=== PATIENT | female | born 2000 | race Caucasian/White ===

== ENCOUNTER 2023-06-11 15:57 | Emergency (ER) | payer BC, SELFPAY ==
[2023-06-11 15:59] VITALS: BP 123/74
[2023-06-11 16:15] LABS: % Basophils 1.1 % (0-2); % Eosinophils 0.7 % (0-6); % Immature Granulocytes 0.2 % (0-0.5); % Lymphocytes 40.8 % (20.5-51.1); % Monocytes 9.1 % (1.7-9.3); % Neutrophils 48.1 % (42.2-75.2); Absolute Basophils 0.1 10^3/uL (0-0.2); Absolute Lymphocytes 2.3 10^3/uL (1.2-3.4); Absolute Monocytes 0.5 10^3/uL (0.1-0.6); Absolute Neutrophils 2.7 10^3/uL (1.4-6.5); Hematocrit 39.6 % (37.0-47.0); Hemoglobin 13.8 g/dL (12.0-16.0); Mean Corp Hgb Conc. 34.8 g/dL (33.0-37.0); Mean Corpuscular Hgb 30.7 pg (27.0-31.0); Mean Platelet Volume 11.8 fL (7.4-10.4); Nucleated Red Blood Cells % 0 %; Platelet Count 202 10^3/uL (130-400); Red Cell Dist. Width 12.3 % (11.5-14.5); White Blood Cell Count 5.6 10^3/uL (4.8-10.8)
[2023-06-11 16:32] LABS: ALT (SGPT) 31 U/L (0-35); AST (SGOT) 29 U/L (14-36); Albumin 4.7 g/dl (3.5-5.0); Alkaline Phosphatase 43 U/L (38-126); Blood Urea Nitrogen 12 mg/dl (7-17); Calcium 10.3 mg/dl (8.4-10.2); Carbon Dioxide 24 mmol/L (22-30); Chloride 102 mmol/L (98-107); Glucose 106 mg/dl (70-99); Potassium 3.4 mmol/L (3.5-5.1); Sodium 136 mmol/L (135-145); Total Protein 7.4 g/dl (6.3-8.2); eGFR > 60.00
[2023-06-11 16:40] LABS: Troponin I < 0.012 ng/ml
[2023-06-11 17:25] LABS: HCG, Serum Qualitative Screen Negative
[2023-06-11 17:35] LABS: Lipase 68 U/L (23-300)
--- NOTE | 2023-06-11 18:32 | ED.GENMED ---
History of Present Illness
General
Chief Complaint: Abdominal Symptoms
Source: patient and family
Time Seen by Provider: 06/11/23 18:14
Travel History
Have you had any contact with someone who has COVID-19?: No
Do you have any symptoms of coronavirus? Fever > 100 degrees, chills, cough, shortness of breath, sore throat, loss of taste or smell, muscle aches, or headache?: No
History of Present Illness
History of Present Illness:
22-year-old female with no significant past medical history presenting to the emergency department with a multitude of symptoms that have been ongoing for the last 2 to 3 weeks including nausea and bilious emesis that she states usually occurs in
the morning or after drinking alcohol (notes that she goes out maybe every 2 weeks but symptoms were worse after drinking), intermittent shortness of breath and right shoulder pain, headaches, intermittent night sweats, decreased p.o. intake,
difficulty bearing down when having a bowel movement. Patient has not attempted anything for her symptoms. She states she has not had a history of this previously. She is otherwise denying any chest pain, cough, pleurisy, hemoptysis, urinary
symptoms, bowel changes, vaginal bleeding or discharge, fevers, chills, rigors. Denies any recent travel, no known sick contacts or recent antibiotics. Social history is only significant for occasional alcohol use. Family history is
noncontributory.
Past History
Past History
ED Past Medical History: None
ED Past Surgical History: Tonsilectomy
Social History
Tobacco: Non-smoker
Alcohol: Occasional
Drug: None
Personal: Single
Living: with family
Employment: Employed
Review of Systems
Review of Systems
All Other Systems: ROS reviewed and negative except as documented in HPI and ROS
Phy Exam
Physical Exam
Physical Exam:
GENERAL: Alert , in no apparent distress
EYE: clear conjunctiva b/l
HEAD: NCAT
ENT: o/p clr, mmm.
CARDIAC: Regular rate and rhythm .
LUNGS: Clear breath sounds bilaterally, no acute respiratory distress, no wheezes/rales/rhonchi
ABDOMEN: Soft, mild epigastric tenderness, no r/g, no cvat
NEUROLOGICAL: Alert and oriented
SKIN: Warm and dry, skin intact.
MUSCULOSKELETAL: No edema, well perfused. Full range of motion bilateral upper extremities
PSYCH: Normal and appropriate interaction.
Scores
Heart Failure Risk
Heart Failure Risk Score: Not Applicable
Heart Score for Chest Pain Patients
STEMI patient?: Not applicable
Withdrawal Assessment of Alcohol
Withdrawal Assessment Completed?: Not applicable
Course
Orders/Labs/Results
Orders:
Orders
06/11/23 16:02
Electrocardiogram (*1) Urgent
Reason for Study: Shortness of Breath
EKG- Treatment ONCE
Test Result ONCE
06/11/23 16:07
Complete Blood Count/With Diff Urgent
Comprehensive Metabolic Panel Urgent
HCG, Serum Qualitative Screen Urgent
Lipase Urgent
Troponin I Urgent
06/11/23 18:41
Urinalysis Reflex To Culture Urgent
Date Specimen was Collected: 06/11/23
Time Specimen was Collected: 18:39
Urine Microscopic Reflex Cult Urgent
Urine Culture Urgent
MAINOR Source: U
Specimen Description:
Date Specimen was Collected: 06/11/23
Time Specimen was Collected: 18:39
Abnormal Lab Results
06/11/23 06/11/23
16:07 18:41
MPV 11.8 H fL
(7.4-10.4)
Potassium 3.4 L mmol/L
(3.5-5.1)
Glucose 106 H mg/dl
(70-99)
Calcium 10.3 H mg/dl
(8.4-10.2)
Urine Ketones Trace A
(Negative)
Leukocyte Esterase Rfl 1+ A
(Negative)
Urine Bacteria (Reflex) Many A
(Negative)
06/11/23 16:07
06/11/23 16:07
Vital Signs
Initial and Last Documented VS:
Initial Vital Signs
Temp Pulse Resp BP Pulse Ox
97.7 F 97 18 123/74 99
06/11/23 15:59 06/11/23 15:59 06/11/23 15:59 06/11/23 15:59 06/11/23 15:59
Last Documented Vital Signs
Temp Pulse Resp BP Pulse Ox
97.7 F 89 16 121/78 98
06/11/23 15:59 06/11/23 18:53 06/11/23 18:53 06/11/23 18:53 06/11/23 18:53
MDM/Problems Addressed
Differential Diagnosis Includes:
GERD, gastritis, peptic ulcer disease, H. pylori, PE considered given the right shoulder pain and shortness of breath however patient states the right shoulder pain seems to be more reproducible with palpation and movement and is only intermittent.
If this were PE and I expect the symptoms to be constant and not fleeting. Unclear etiology for her night sweats as she has no fever, no leukocytosis or any infectious signs/symptoms.
MDM/Problems Addressed:
22-year-old female presenting emergency department for a multitude of symptoms that have been ongoing over the last few weeks. Unclear etiology for patient's multitude of symptoms however I do suspect her GI symptoms may be related to
GERD/gastritis especially in light of symptoms being worse with alcohol intake. I have very low suspicion for PE as patient has no risk factors for this. She is PERC negative. Labs were initiated in triage and are all reassuring. There is no
leukocytosis, hemoglobin is within normal limits and chemistry is unremarkable. test is negative. Overall I do not suspect any emergent pathology. Will check a urinalysis. Offered chest x-ray however patient declines. Anticipate
discharge home with outpatient management. Patient notes that she does not have a primary care physician currently so will notify the [facility] dispatch coordinator talk to patient to help facilitate outpatient management.
*Pulse Oximetry
Patient hypoxic: no
*Critical Care Note
Total Time (30-74mins, 75-104mins- exclusive of procedures): Not Applicable
Comment
Comment:
Urinalysis did show 1+ leukocytes however there were many bacteria, moderate mucus and only 6-10 WBCs. Culture was sent. Patient is not exhibiting any urinary symptoms so will await culture prior to treating. She is otherwise stable for discharge
home
ED Attending Note
-
Portions of this chart may have been created with voice recognition software.� Occasional wrong word or��sound alike� substitutions may have occurred due to the inherent limitations of voice recognition software.
Discharge Plan
Departure
Patient Disposition: Home (Routine Discharge)
Date of Disposition: 06/11/23
Time of Disposition: 18:44
Patient with high blood pressure during this ER visit?: No
Discharge Problem:
Nausea and vomiting, Right shoulder pain, Night sweats
Instructions: Nausea and Vomiting, Adult (DC)
Prescriptions:
New
pantoprazole [Protonix] 40 mg tablet,delayed release (DR/EC)
40 mg PO DAILY Qty: 30 0RF
ondansetron 4 mg tablet,disintegrating
4 mg PO TIDPRN PRN (Reason: nausea/vomiting) Qty: 10 0RF
Referrals:
Serina Winslow MD [Active] - (GI - Call for appointment)
Interventions
Interventions:
*Risk Screen - Suicide Last Done: 06/11/23 15:59
*General Assessment Last Done: 06/11/23 15:59
*Neglect/Abuse Screening Last Done: 06/11/23 15:59
ED- Fall Risk Assessment Last Done: 06/11/23 18:53
*ED COVID-19 Vaccine History Last Done: 06/11/23 15:59
*Nursing Disposition Last Done: 06/11/23 18:53
SG-Xpggca-Rweoyssmlk Assessment Last Done: 06/11/23 18:12
Discharge Date and Time
Discharge Date/Time: 06/11/23 18:54
Print Language: UKRAINIAN
[2023-06-11 18:48] LABS: Urine Albumin Trace (Neg - Trace); Urine Bilirubin Negative (Negative); Urine Character Clear (Clear); Urine Color Yellow; Urine Glucose Negative (Negative); Urine Ketone Trace (Negative); Urine Leukocyte 1+ (Negative); Urine Nitrite Negative (Negative); Urine Occult Blood Negative (Negative); Urine Urobilinogen 1+ (Neg - 1+)
[2023-06-11 18:53] VITALS: BP 121/78
[2023-06-11 18:55] LABS: Urine Mucus Moderate
[2023-06-11 18:56] LABS: Urine Bacteria Many (Negative); Urine Red Blood Cell 0-2 /HPF (0-2)
== END 2023-06-11 18:54 | disposition home or self-care (01) ==
LOC: EMR 15:57
PROVIDERS: Emergency Medicine; Physician Assistant Medical; EMERGENCY PHYSICIAN Emergency Medicine
DX: M25.511 Pain in right shoulder (principal); R11.2 Nausea with vomiting, unspecified; R61 Generalized hyperhidrosis
CPT/HCPCS: 99284; 80053; 81003; 81015; 83690; 84484; 84703; 85025; 87086; 93005

== ENCOUNTER 2023-12-24 18:19 | Emergency (ER) | payer BC, SELFPAY ==
[2023-12-24 18:27] VITALS: BP 102/74
[2023-12-24 19:09] LABS: % Basophils 0.6 % (0-2); % Eosinophils 1.2 % (0-6); % Immature Granulocytes 0.2 % (0-0.5); % Lymphocytes 30.6 % (20.5-51.1); % Neutrophils 60.4 % (42.2-75.2); Absolute Basophils 0.1 10^3/uL (0-0.2); Absolute Eosinophils 0.1 10^3/uL (0-0.7); Absolute Lymphocytes 2.5 10^3/uL (1.2-3.4); Absolute Monocytes 0.6 10^3/uL (0.1-0.6); Absolute Neutrophils 4.9 10^3/uL (1.4-6.5); Hemoglobin 12.7 g/dL (12.0-16.0); Mean Corp Hgb Conc. 35.3 g/dL (33.0-37.0); Mean Corpuscular Hgb 30.9 pg (27.0-31.0); Mean Corpuscular Volume 87.6 fL (81.0-99.0); Mean Platelet Volume 11.5 fL (7.4-10.4); Nucleated Red Blood Cells % 0 %; Platelet Count 186 10^3/uL (130-400); Red Blood Cell Count 4.11 10^6/uL (4.20-5.40); White Blood Cell Count 8.2 10^3/uL (4.8-10.8)
--- NOTE | 2023-12-24 19:27 | ED.GENMED ---
History of Present Illness
General
Chief Complaint: Headache
Source: patient
Exam Limitations: none
Time Seen by Provider: 12/24/23 19:02
History of Present Illness
History of Present Illness:
This is a 23 year old female that comes in with c/o left sided headache. States that this started 3 days ago. States that there is pressure on the left sided of her head and running into her ear. States that she has never had this before. States
that her left neck and shoulders feel stiff and tense. States that if she talks fast she feels that sometimes she is slurring her words. Mom states that she is not slurring at this time. States that occasionally she also has ringing in her ear.
States that her urine does smell. Denies any fever, chills, chest pain, SOB, abd pain, nausea, vomiting, diarrhea, dizziness, urinary burning.
Past History
Past History
ED Past Medical History: None; Negative Asthma, HTN, Hypercholesterolemia or NIDDM
ED Past Surgical History: Tonsilectomy and Other (Myringotomy tubes as child)
Social History
Tobacco: Vaping
Alcohol: Occasional
Drug: None and Marijuana
Personal: Single
Living: with family
Employment: Employed
Review of Systems
Review of Systems
All Other Systems: ROS reviewed and negative except as documented in HPI and ROS
Constitutional: Reports no symptoms; Denies fever or chills
EENT: Reports no symptoms
Respiratory: Reports no symptoms; Denies cough or trouble breathing
Cardiac: Reports no symptoms; Denies chest pain
ABD/GI: Reports no symptoms; Denies abdominal pain, nausea, vomiting or diarrhea
: Reports other (Urine is fowl smelling)
Musculoskeletal: Reports no symptoms
Skin: Reports no symptoms
Neurological: Reports headache (Left sided); Denies dizzy
Psychiatric: Reports no symptoms
Phy Exam
General Physical Exam
General Presentation: well appearing and no apparent distress
General age: appears stated age
General Skin: warm and dry
General Habitus: normal
General Mental: alert
General Hydration: appears well hydrated
ENT Exam
ENT Exam: TM's normal, pharynx normal and neck supple
Eye Exam
Eye Exam: EOMI
Cardiovascular Exam
Cardiovascular Exam: regular rate/rhythm, no edema, no murmur and normal peripheral pulses
Pulmonary Exam
Pulmonary Exam: lungs clear, no respiratory distress, no rales, chest non tender, no crackles, no rhonchi and no cough
Gastrointestinal Exam
Gastrointestinal Exam: normal bowel sounds, non tender, soft, no organomegaly, no pulsatile mass and non distended
Musculoskeletal Exam
Musculoskeletal Exam: full ROM and no edema
Skin Exam
Skin Exam: normal color, warm/dry and no rash
Psychiatric Exam
Psychiatric Exam: normal mood/affect
Course
Orders/Labs/Results
Orders:
Orders
12/24/23 19:03
Comprehensive Metabolic Panel Urgent
HCG, Serum Qualitative Screen Urgent
12/24/23 19:04
Complete Blood Count/With Diff Urgent
12/24/23 19:08
CT Head W/o Iv Contrast Urgent
Comment:
Reason For Exam: headache
12/24/23 19:26
0.9% Sodium Chloride 500 ml [Nss] 500 ml IV BOLUS
Dexamethasone Sod Phosphate [Decadron] 10 mg IV NOW STA
Ketorolac [Toradol] 15 mg IV NOW STA
12/24/23 19:29
Add On- LAB Urgent
Tests Added?: HCG
12/24/23 19:31
Acetaminophen [Tylenol] 650 mg PO NOW STA
12/24/23 19:35
Urinalysis Reflex To Culture Urgent
Date Specimen was Collected: 12/24/23
Time Specimen was Collected: 19:29
Urine Microscopic Reflex Cult Urgent
Urine Culture Urgent
MAINOR Source: U
Specimen Description:
Date Specimen was Collected: 12/24/23
Time Specimen was Collected: 19:29
Abnormal Lab Results
12/24/23 12/24/23 12/24/23
19:03 19:04 19:35
RBC 4.11 L 10^6/uL
(4.20-5.40)
Hct 36.0 L %
(37.0-47.0)
MPV 11.5 H fL
(7.4-10.4)
Carbon Dioxide 20 L mmol/L
(22-30)
BUN 23 H mg/dl
(7-17)
Alkaline Phosphatase 21 L U/L
(38-126)
Ur Occult Blood Reflex 3+ A
(Negative)
Leukocyte Esterase Rfl 1+ A
(Negative)
Urine RBC 3-6 A /HPF
(0-2)
Urine Bacteria (Reflex) Few A
(Negative)
12/24/23 19:04
12/24/23 19:03
CBC normal, Carbon dioxide slightly low. Dehydration. Alk phos low. Urine negative for infection. HCG negative.
Vital Signs
Initial and Last Documented VS:
Initial Vital Signs
Temp Pulse Resp BP Pulse Ox
97.9 F 95 18 102/74 100
12/24/23 18:27 12/24/23 18:27 12/24/23 18:27 12/24/23 18:27 12/24/23 18:27
Last Documented Vital Signs
Temp Pulse Resp BP Pulse Ox
97.9 F 91 16 114/72 99
12/24/23 18:27 12/24/23 20:30 12/24/23 20:30 12/24/23 20:30 12/24/23 20:30
MDM/Problems Addressed
Differential Diagnosis Includes:
Migraine, Brain tumor, UTI
MDM/Problems Addressed:
This is a 23 year old female that comes in with c/o left sided head pressure. States that this has been going on for 3 days. States that she has never had this before and that if she talks fast she feels that she is slurring her words.
Will check labs, CT head, Urine. Will give IV fluids and medicate for headache pain.
Back into see patient. Explained that her CT scan of the head is normal. Blood work shows dehydration. Encouraged patient to increase her water intake. Explained that she can alternate with Tylenol and Ibuprofen for headache pain. Follow up with the
family doctor. Return with any concerns.
Chronic conditions affecting care:
NA
Acute Exacerbation and/or Progression of Chronic Illness:
NA
*Radiology
Radiology exam reviewed: radiology read reviewed (CT head-No CT evidence for intracranial disease. )
*Pulse Oximetry
Patient hypoxic: no
*EKG
Interpreted by ED Provider?: NA
Rate: EKG- N/A
*Squeegee Finisher Interpretation
Rate: Squeegee Finisher- N/A
*Critical Care Note
Total Time (30-74mins, 75-104mins- exclusive of procedures): Not Applicable
ED Attending Note
-
Portions of this chart may have been created with voice recognition software.� Occasional wrong word or��sound alike� substitutions may have occurred due to the inherent limitations of voice recognition software.
Discharge Plan
Departure
Patient Disposition: Home (Routine Discharge)
Date of Disposition: 12/24/23
Time of Disposition: 20:44
Patient with high blood pressure during this ER visit?: No
Condition: Good
Covid-19: Not Applicable
Discharge Problem:
Headache
Instructions: Headache, Adult (DC)
Prescriptions:
No Action
pantoprazole [Protonix] 40 mg tablet,delayed release (DR/EC)
40 mg PO DAILY Qty: 30 0RF
ondansetron 4 mg tablet,disintegrating
4 mg PO TIDPRN PRN (Reason: nausea/vomiting) Qty: 10 0RF
Referrals:
NONE,* [Family Provider] -
Activity Restrictions/Additional Instructions:
As discussed, your blood work show dehydration. Please increase your water intake to 8-8oz glasses daily. Your CT of the head is normal. You may use Tylenol 650mg every 4 hours and alternate with Ibuprofen 600mg every 6 hours with food. Follow up
with the family doctor for recheck. IF YOU HAVE ANY OTHER CONCERNS PLEASE RETURN TO THE EMERGENCY ROOM.
Interventions
Interventions:
*Risk Screen - Suicide Last Done: 12/24/23 19:28
*General Assessment Last Done: 12/24/23 19:28
*Neglect/Abuse Screening Last Done: 12/24/23 19:28
ED- Neurological Assessment Last Done: 12/24/23 19:28
Discharge Date and Time
Print Language: UPPER SORBIAN
[2023-12-24 19:28] VITALS: BMI 18.9
[2023-12-24] MEDS: TORADOL 15 MG IV (19:33)
[2023-12-24] MEDS: TYLENOL 650 MG PO (19:33)
[2023-12-24] MEDS: NSS 500 IV (19:34)
[2023-12-24] MEDS: DECADRON 10 MG IV (19:34)
[2023-12-24 19:35] LABS: ALT (SGPT) 12 U/L (0-35); AST (SGOT) 19 U/L (14-36); Albumin 4.1 g/dl (3.5-5.0); Alkaline Phosphatase 21 U/L (38-126); Blood Urea Nitrogen 23 mg/dl (7-17); Calcium 9.3 mg/dl (8.4-10.2); Carbon Dioxide 20 mmol/L (22-30); Chloride 104 mmol/L (98-107); Estimated Creatinine Clearance 98 ml/min; Glucose 91 mg/dl (70-99); Potassium 3.9 mmol/L (3.5-5.1); Sodium 135 mmol/L (135-145); Total Bilirubin 0.5 mg/dl (0.2-1.3); Total Protein 6.6 g/dl (6.3-8.2); eGFR > 60.00
[2023-12-24 19:46] LABS: Urine Albumin Negative (Neg - Trace); Urine Bilirubin Negative (Negative); Urine Character Clear (Clear); Urine Color Yellow; Urine Glucose Negative (Negative); Urine Ketone Negative (Negative); Urine Leukocyte 1+ (Negative); Urine Nitrite Negative (Negative); Urine Occult Blood 3+ (Negative); Urine Urobilinogen Negative (Neg - 1+)
[2023-12-24 19:53] LABS: HCG, Serum Qualitative Screen Negative
[2023-12-24 19:59] LABS: Urine Bacteria Few (Negative)
[2023-12-24 20:30] VITALS: BP 114/72
== END 2023-12-24 20:54 | disposition home or self-care (01) ==
LOC: EMR 18:19
PROVIDERS: Clinical Nurse Specialist Family Health; EMERGENCY PHYSICIAN Emergency Medicine
DX: R51.9 Headache, unspecified (principal); E86.0 Dehydration; F17.290 Nicotine dependence, other tobacco product, uncomplicated
CPT/HCPCS: 99284; 96374; 96375; 96361; 70450; 80053; 81003; 81015; 84703; 85025; 87086